=== PATIENT | male | born 1990 | race African-American/Black ===

== ENCOUNTER 2020-05-03 11:22 | Emergency (ER) | payer MEDICAID, OTHER, SELFPAY ==
[~2020-05-03] VITALS: Ht 180.3 cm; Wt 59.7 kg
[2020-05-03 11:22] VITALS: BP 106/58
[2020-05-03] MEDS ORDERED: LIDOCAINE 1% SDV 5ML VIAL DILUENT ONE (11:45)
[2020-05-03] MEDS ORDERED: AZITHROMYCIN 250MG TABLET PO ONE (11:45)
[2020-05-03] MEDS ORDERED: cefTRIAXone SOD 250MG VIAL (J0696 PER 250MG) IM ONE (11:45)
[2020-05-03 13:23] LABS: CHLAMYDIA DNA AMPLIFICATION POSITIVE (NEGATIVE); GC DNA AMPLIFICATION POSITIVE (NEGATIVE)
== END 2020-05-03 12:11 | disposition home or self-care (01) ==
LOC: M ED 11:22
DX: A74.9 Chlamydial infection, unspecified (principal); A54.9 Gonococcal infection, unspecified
CPT/HCPCS: 87661; 96372; 99282; J0696

== ENCOUNTER 2024-11-16 00:13 | Emergency (ER) | payer OTHER ==
[~2024-11-16] VITALS: Ht 180.3 cm; Wt 62.5 kg
[2024-11-16 06:46] VITALS: BP 112/70; TEMP 98; O2SAT 99
== END 2024-11-16 06:47 | disposition home or self-care (01) ==
LOC: M ED 00:13
DX: K02.9 Dental caries, unspecified (principal)